=== PATIENT | female | born 1945 | race African-American/Black ===

== ENCOUNTER 2022-01-18 10:59 | Emergency (ER) | payer OTHER ==
[~2022-01-18] VITALS: Ht 162.6 cm; Wt 86.2 kg
[2022-01-18] MEDS ORDERED: SYNTHROID50 MCG PO (11:55)
[2022-01-18] MEDS ORDERED: SYNTHROID50 MCG (11:55)
== END 2022-01-18 15:00 | disposition home or self-care (01) ==
LOC: ER 10:59
DX: B37.0 Candidal stomatitis (principal)